=== PATIENT | female | born 1960 | race Caucasian/White ===

== ENCOUNTER → 2018-07-10 | Emergency (ER) | payer OTHER ==
[~2018-07-10] VITALS: Ht 162.6 cm; Wt 59.0 kg
[~2018-07-10] MED LIST: ATACAND4 MG PO; CEFUROXIME500 MG PO; KETO10TA2 PO; LIPITOR20 MG; LOSARTAN POTAS100 MG; PERCOCET 5/3251 TAB PO; RECTICARE30 GM TP; SYNTHROID125 MCG PO
== END | disposition home or self-care (01) ==
LOC: ER 00:38
DX: R10.2 Pelvic and perineal pain (principal)

== ENCOUNTER 2019-10-27 07:26 | Day surgery (SDC) | payer OTHER ==
[~2019-10-27 07:26] MED LIST changes: +TRILIPIX135 MG PO
== END 2019-10-27 15:05 | disposition home or self-care (01) ==
LOC: CIR.AMB 07:26 → ADM 10:45 → CIR.AMB 10:45
PROVIDERS: ATTEND Obstetrics & Gynecology
DX: N84.0 Polyp of corpus uteri (principal); Z20.828 Contact with and (suspected) exposure to other viral communicable diseases